=== PATIENT | male | born 1980 | race Caucasian/White ===

== ENCOUNTER 2018-06-13 17:29 | Outpatient (CLI) | payer OTHER ==
[2018-06-13 18:24] LABS: SEGMENTED NEUTROPHILS % 56 % (39-79)
[2018-06-13 18:25] LABS: MONOCYTES % 12 % (0-11)
[2018-06-13 18:38] LABS: eGFR (Non-African) > 60
== END 2018-06-13 17:32 ==
LOC: LAB 17:29
PROVIDERS: ATTEND Family Medicine
DX: R63.5 Abnormal weight gain (principal); F10.10 Alcohol abuse, uncomplicated
CPT/HCPCS: 36415; 80053; 84443; 85025